=== PATIENT | female | born 1990 | race Caucasian/White ===

== ENCOUNTER → 2021-11-01 | Outpatient (CLI) | payer BC, SELFPAY ==
[2021-11-01 17:52] LABS: ALB/GLOB Ratio 1.2 RATIO (0.9-2.4); AST(SGOT) 19 U/L (15-37); Alanine Aminotransfer ALT/SGPT 23 U/L (13-56); Albumin, Serum 4.2 g/dL (3.2-5.0); Alkaline Phosphatase 123 U/L (45-117); Anion Gap 10 (5-15); BUN 7 mg/dL (7-18); BUN/Creat Ratio 10.3 RATIO (10-20); Calcium,Total 9.5 mg/dL (8.5-10.1); Chloride 105 mmol/L (98-107); Creatinine, Serum 0.68 mg/dL (0.55-1.02); EST Glomerular Filtration Rate 107 mL/min (>60); Est Glom Filt Rate - Afr Amer 129 mL/min (>60); Globulin 3.5 g/dL (2.2-4.2); Glucose 97 mg/dL (74-106); Potassium 4.3 mmol/L (3.5-5.1); Protein, Total 7.7 g/dL (6.4-8.2); Sodium Level 139 mmol/L (136-145); Thyroid Stim Hormone (TSH) 1.01 uIU/mL (0.358-3.74)
== END | disposition home or self-care (01) ==
LOC: MFPLAB 12:11
PROVIDERS: Visit Provider Family Medicine
DX: F41.9 Anxiety disorder, unspecified (principal)
CPT/HCPCS: 36415; 80053; 84443

== ENCOUNTER → 2022-12-24 | Outpatient (CLI) | payer BC, SELFPAY ==
[2022-12-27 18:14] LABS: HPV HC, High Risk Negative
== END | disposition home or self-care (01) ==
LOC: LABSPEC 10:13
PROVIDERS: Referring Provider Nurse Practitioner Family; Visit Provider Nurse Practitioner Family
DX: Z12.4 Encounter for screening for malignant neoplasm of cervix (principal)
CPT/HCPCS: 87624; 88175; G0145

== ENCOUNTER → 2023-03-20 | Outpatient (CLI) | payer BC, SELFPAY ==
[2023-03-25 08:12] LABS: Chlamydia By Nucleic Acid AMP Negative (Negative); Gonococcus By Nucleic Acid AMP Negative (Negative)
== END | disposition home or self-care (01) ==
LOC: LABSPEC 16:27
PROVIDERS: Referring Provider Advanced Practice Midwife; Visit Provider Advanced Practice Midwife
DX: Z34.90 Encounter for supervision of normal pregnancy, unspecified, unspecified trimester (principal)
CPT/HCPCS: 87086; 87491; 87591

== ENCOUNTER → 2023-04-03 | Outpatient (CLI) | payer BC, SELFPAY ==
[2023-04-03 17:16] LABS: Absolute Lymphocyte Count 2.52 X10^3/uL (0.83-4.51); Absolute Neutrophil Count 8.1 X10^3/uL (2.0-7.7); Basophil# 0.07 X10^3/uL; Basophil% 0.6 % (0-1); Eosinophil# 0.07 X10^3/uL; Eosinophils% 0.6 % (0-5); Hematocrit 41.9 % (37-47); Hemoglobin 13.6 g/dL (12.0-15.0); Lymphocyte # 2.52 X10^3/ul (0.83-4.51); Mean Corp Hgb Conc 32.5 g/dL (32-36); Mean Corpuscular Hgb 29.3 pg (27.0-32.0); Mean Corpuscular Volume 90.3 fL (81-99); Mean Platelet Vol. 9.2 fl (6.2-12.0); Monocyte# 0.67 X10^3/uL; Monocyte% 5.8 % (0-10); NRBC Flagged by Analyzer 0 % (0-5); Neutrophil # 8.07 X10^3/uL (2.7-7.7); Neutrophil % 70.3 % (47-70); Platelet Count 338 K/mm3 (150-450); RBC Distribution Width CV 12.3 % (11.6-14.6); RBC Distribution Width SD 40.4 fl (35.1-43.9); Red Blood Count 4.64 M/mm3 (4.2-5.4); White Blood Count 11.5 K/mm3 (4.4-11.0)
[2023-04-03 17:20] LABS: NATERA MAILED SPECIMEN
[2023-04-03 17:54] LABS: Hemoglobin A1c 5.3 % (3.8-5.6)
[2023-04-03 18:40] LABS: HIV - WCH Non-Reactive (Nonreactive); Hepatitis B Surface Antigen Non-Reactive (Nonreactive); Hepatitis C Antibody Non-Reactive (Nonreactive); Rubella IgG Reactive (Nonreactive); Syphilis Antibodies Non-reactive
== END | disposition home or self-care (01) ==
LOC: LAB 16:14
PROVIDERS: PCP Family Medicine; Referring Provider Advanced Practice Midwife; Visit Provider Advanced Practice Midwife
DX: Z34.90 Encounter for supervision of normal pregnancy, unspecified, unspecified trimester (principal)
CPT/HCPCS: 36415; 83036; 85025; 86703; 86762; 86780; 86803; 86850; 86900; 86901; 87340

== ENCOUNTER → 2023-05-26 | Outpatient (CLI) | payer BC, SELFPAY ==
--- NOTE | 2023-05-26 07:49 | US_ITS ---
STUDY: SECOND AND THIRD TRIMESTER OBSTETRICAL ULTRASOUND REASON FOR EXAM: Female, 33 years old anatomy LMP: January 15, 2023. TECHNIQUE: Transabdominal and Transvaginal TECHNICAL QUALITY: Adequate. PRIOR ULTRASOUND: None. FINDINGS: There is a single intrauterine fetus. The fetus is in a cephalic presentation. There is demonstrated cardiac activity with a heart rate of 142 bpm. There is a normal amniotic fluid volume. The largest amniotic fluid pocket measures 5.4 cm. The amniotic fluid index (DARYL) is within normal limits. The placenta is fundal in location. There are Grade 0 placental changes. The cervix measures 4.5 in length. The adnexal regions are not visualized. BIOMETRY: BPD: 4.47 cm: 19 weeks, 4 days HC: 16.4 cm: 19 weeks, 1 days AC: 12.96 cm: 18 weeks, 3 days FL: 2.71 cm: 18 weeks, 2 days CI: 79.1% FL/BPD: 60.8% FL/HC: FL/AC: 20.94% HC/AC: 1.27 age by current US: 18 weeks, 6 days. PAVAN by current US: October 21, 2023. Estimated weight: 245 grams, +/- 37 grams, 34 %. Age by LMP: 18 weeks, 5 days. PAVAN by LMP: October 22, 2023. ANATOMY: Gender: Female Cranium: Normal lateral ventricles. Normal choroid plexus. Normal cerebellum. Normal cisterna magna. Normal face, nose and lips. Chest: Normal 4-chamber heart. Abdomen/Pelvis: Normal diaphragm. Normal stomach. Normal abdominal wall. Normal cord insertion. Normal 3 vessel cord. Normal kidneys. Normal bladder. Spine: Normal cervical spine. Normal thoracic spine. Normal lumbar spine. Normal sacrum. Extremities: Normal bilateral upper extremities. Normal bilateral lower extremities. US/OB Anatomy w/ Transvaginal IMPRESSION: Single live intrauterine gestation with a mean gestational age of 18 weeks and 6 days. Electronically Signed: Ramon Hollingsworth MD at 11:56 EST ,
--- OUTSIDE RECORDS SUMMARY | 2023-05-26 08:08 | XMS RPT_ITS | CCD ---
Author Name Unknown Address [address] [facility] [address] [place] [id number] Organization [facility] Care Team Providers Care Speed Reading Teacher Name Role Phone Unavailable Primary Care Provider Unavailabl e Jamari Hurt Unavailable Unavailable None, No PCP Unavailable Unavailable None, No PCP Unavailable Unavailable Unavailable Unavailable Medications Current Medications Medication Drug Class(es) Dates Sig (Normalized) Sig (Original) sulfamethoxazole 800 mg / trimethoprim 160 mg oral tablet (2 sources) Dihydrofolate Reductase Inhibitor Antibacterial, Sulfonamide Antimicrobial Start: 10-22-2018 End: 10-27-2018 take 1 tablet by mouth twice daily sulfamethoxazol e-trimethoprim 800-160 MG Tab per tablet Take 1 tablet by mouth 2 times daily for 5 days. 10 tablet 0 10/22/2018 10/27/2018 Active Completed/Discontinued Medications Medication Drug Class(es) Dates Sig (Normalized) Sig (Original) TABS (3 sources) TABS Re fills: 0 DO Active Problems Active Problems Problem Classification Problem Date Documented Da te Episodic/Chronic Bacterial infection; unspecified site (4 sources) Chlamydial infection; Translations: [Unspecified chlamydial infection] Episodic Immunizations and screening for infectious disease (5 sources) Contact with and (suspected) exposure to other viral communicable diseases; Translations: [Suspected disease caused by 2019-nCoV] Resolved: 12-29-2019 Episodic Other complications of (4 sources) Hereditary disease in family possibly affecting fetus; Translations: [Hereditary disease in family possibly affecting fetus, affecting management of mother, antepartum condition or complication] Episodic Other endocrine disorders (3 sources) Menarche; Translations: [History of Menarche] Chronic Other and delivery including normal (4 sources) Primigravida; Translations: [ care status] Episodic Other screening for suspected conditions (not mental disorders or infectious disease) (2 sources) Cancer cervix screening status; Translations: [Screening for malignant neoplasms of cervix] Episodic Residual codes; unclassified (1 source) Gestation period, 24 weeks; Translations: [24 weeks gestation of ] Episodic Residual codes; unclassified (4 sources) H/O: miscarriage; Translations: [Personal history of other genital system and obstetric disorders] Episodic Past or Other Problems Problem Classification Problem Date Documented Da te Episodic/Chronic Genitourinary symptoms and ill-defined conditions (1 source) Dysuria; Translations: [Dysuria] Episodic Residual codes; unclassified (1 source) Gestation period, 38 weeks; Translations: [38 weeks gestation of ] Unclassified (6 sources) Patient encounter status; Translations: [History of Screening for STD (sexually transmitted disease)] Unclassified (3 sources) Cancer cervix screening status; Translations: [History of Screening for cervical cancer] NEGATED: Highlighted row has not occurred!Residual codes; unclassified (20 sources) Disease Episodic Results Test Name Value Interpretation Reference Range Facil ity Vital Signs Date Time Vital Sign Value Performing Clinician Simon mclaughlin 08-13-2021 15:26-0400 Body height 172.72 cm No PCP None [facility] Phone: 08-13-2021 15:26-0400 Body mass index (BMI) [Ratio] 29.55 kg/m2 No PCP None [facility] Phone: 08-13-2021 15:26-0400 Body surface area Derived from formula 2.02 m2 No PCP None [facility] Phone: 08-13-2021 15:26-0400 Body weight 88.17 kg No PCP None [facility] Phone: 08-13-2021 15:26-0400 Diastolic blood pressure 80 mm[Hg] No PCP None [facility] Phone: 08-13-2021 15:26-0400 Systolic blood pressure 110 mm[Hg] No PCP None [facility] Phone: 05-10-2020 14:59-0500 BMI (Body Mass Index) 33.15 kg/m2 [facility] [address] Work Phone: 05-10-2020 14:59-0500 Body Temperature 96 [degF] [facility] [address] [place] Work Phone: Encounters Encounter Date Encounter Type Care Provider Facility Start: 08-13-2021 Periodic preventive med est patient 18-39 yrs No PCP None [facility] [address] [place] Work Phone: Start: 05-10-2020 Patient encounter procedure Jamari falk [facility] [address] [place] Work Phone: Start: 05-03-2020 Patient encounter procedure Jamari [place] [facility] [address] [place] Work Phone: Start: 04-26-2020 Patient encounter procedure Jamari [facility] [address] [place] Work Phone: Start: 04-19-2020 Patient encounter procedure Jamari [place] [facility] [address] [place] Work Phone: Start: 04-12-2020 Patient encounter procedure Jamaridayne falk [facility] [address] [place] Work Phone: Start: 03-29-2020 Patient encounter procedure Jamari [place] [facility] [address] [place] Work Phone: Start: 03-15-2020 Patient encounter procedure Jamari falk [facility] [address] [place] Work Phone: Start: 02-28-2020 Patient encounter procedure Jamari [place] falk [facility] [address] Work Phone: Start: 02-01-2020 Patient encounter procedure Jamari [place] falk [facility] [address] [place] Work Phone: Start: 12-29-2019 Patient encounter procedure Jamari Ad air [facility] [address] [place] Work Phone: Start: 12-13-2019 Patient encounter procedure Jamari [place] air [facility] [address] [place] Work Phone: Start: 12-07-2019 Patient encounter procedure Jamari falk [facility] [employer] Work Phone: Start: 11-04-2019 Patient encounter procedure Jamari falk [facility] [employer] Work Phone: Start: 10-25-2019 Patient encounter procedure Jamari falk [facility] [employer] Work Phone: Start: 10-25-2018 End: 10-25-2018 Telephone encounter Arminda [place] [facility] [place] Procedures Date Procedure Procedure Detail Performing Clinician Start: 05-22-2020 Antibody screen Plan of Treatment Date Care Activity Detail Author Start: 01-03-2019 Influenza vaccination INFLUENZ A VACCINE (Season Ended) [facility] Start: 10-22-2018 End: 10-23-2019 Bacteria identified Cx Nom (U) URINE CULTURE Microbiology Routine Dysuria Expected: 10/22/2018, Expires: 10/23/2019 [facility] Payers Date Payer Category Payer Private Health Insurance xxx [id number] Unknown ANTHEM Social History Date Type Detail Facility Tobacco smoking stat [facility] Unknown if ever smoked [facility] Sex Assigned At Not on file [facility] Start: 10-19-2018 End: 10-22-2018 Tobacco smoking status NMIS Current some day smoker [facility] History of tobacco use Cigarette Smoker [facility] Start: 10-19-2018 Tobacco Comment occasional smoker [facility] Start: 10-19-2018 Alcohol Comment socially [facility] Never a smoker Never a smoker [facility] [employer] Phone: Functional Status Date Assessment Result Facility NEGATED: Highlighted row Functional performance Functional status health issues are not documented Disease [facility] [employer] Work Phone: Mental Status Date Assessment Result Facility NEGATED: Highlighted row Cognitive function [Interpretation] Cognitive status health issues are not documented Disease [facility] [employer] Phone: History of Present illness Narrative Note Date & Type Note Facility History of Present illness Narrative 31-year-old presents for annual exam. Patient safe at home denies abuse. Patient sex active with condoms. Patient transition off NuvaRing as she is thinking about near the end of the year. Patient like a prescription for vitamins. Patient working on physical activity. Patient does self breast exams no new lumps bumps masses. Patient has no other acute concerns [facility] [employer] Work Phone: Instructions Name Dates Details Instructions not documented Name Dates Details Instructions not documented Name Dates Details Instructions not documented History of Present Illness * Dayna Barth, EMERGENCY MANAGEMENT SYSTEM DIRECTOR-PRODUCTION ENGINE REPAIRER - 10/19/2018 5:10 PM EDT HPI Jewel Shell is a 28 y.o. female presenting to the clinic for back pain. She states that she has had low back pain for a few days. Her menses is due in one week. No urinary complaints. No fevers and no rashes. She denies any radiation of the pain. ROS Constitutional: Denies Fever or chills Eyes: Denies visual change or eye discharge Head/Ear/Nose/Throat: Denies earache or sore throat Respiratory: Denies shortness of breath. Denies cough Cardiovascular: Denies chest pain or palpitations Gastrointestinal: SEE HPI Genitourinary: Denies dysuria Musculoskeletal: SEE HPI Skin: Denies Rash Neurological: Denies Headache, Denies focal neuro symptoms Social History Tobacco Use Smoking status: Current Some Day Smoker Types: Cigarettes Smokeless tobacco: Never Used Tobacco comment: occasional smoker Substance Use Topics Alcohol use: Yes Comment: socially Drug use: Never PHYSICAL EXAM Blood pressure 126/82, pulse 81, temperature 99.1 F (37.3 C), temperature source Temporal, resp. rate 16, height 1.727 m (5' 8 ), weight 80.9 kg (178 lb 6.4 oz), SpO2 99 %, not currently . Primary Assessment: Airway patent. Respirations unlabored, Normal respiratory effort Constitutional: Vital signs reviewed. Well appearing. No distress Patient walked back to the room with no problem. Skin: Warm and dry. No rashes noted Eyes: Conjunctiva clear. No photophobia HENT: Normocephalic. Normal Tms. Posterior pharynx clear. Thorax/ Respiratory: Respiratory effort non-labored. CTAB. Heart: Regular rate and rhythm . Gastrointestinal: Abdomen soft and non-tender. No rebound. NO cva tenderness. No rashes to back. Noparaspinal pain. Low lumbar pain B/L. No warmth Musculoskeletal: Neck supple. Neurologic: Alert and Oriented Diagnosis: ICD-10-CM 1. Lumbar back sprain, initial encounter S33.5XXA Plan: Patient denied any injury today. Our xray machine is down in the clinic. She is to see her PCP if no better in the next 5-7 days. Take Tylenol or Motrin as needed with heat or ice. We will send the urine out to ensure no growth. I did not place her on ATB yet. BROOK Romero 10/19/2018 documented in this encounter* Dayna Barth APRN-CNP - 10/22/2018 5:35 PM EDT HPI Jewel Shell is a 28 y.o. female presenting to the clinic for low back pain and frequency of urine.States that she was seen here on Friday and we requested a new urine sample as hers was showing contaminated with recommendation of new sample. Currently on menses. No fevers. States that she has hadUTI's in past and feels same. Reports 5 days of s/s. ROS Constitutional: Denies Fever or chills Eyes: Denies visual change or eye discharge Head/Ear/Nose/Throat: Denies earache or sore throat Respiratory: Denies shortness of breath. Denies cough Cardiovascular: Denies chest pain or palpitations Gastrointestinal: SEE HPI Genitourinary: SEE HPI Musculoskeletal: SEE HPI Skin: Denies Rash Neurological: Denies Headache, Denies focal neuro symptoms Social History Tobacco Use Smoking status: Current Some Day Smoker Types: Cigarettes Smokeless tobacco: Never Used Tobacco comment: occasional smoker Substance Use Topics Alcohol use: Yes Comment: socially Drug use: Never PHYSICAL EXAM Blood pressure 113/78, pulse 78, temperature 98.3 F (36.8 C), temperature source Temporal, resp. rate 16, height 1.727 m (5' 8 ), weight 79.1 kg (174 lb 6.4 oz), SpO2 99 %, not currently . Primary Assessment: Airway patent. Respirations unlabored, Normal respiratory effort Constitutional: Vital signs reviewed. Well appearing. No distress Thorax/ Respiratory: Respiratory effort non-labored. . Heart: Regular rate and rhythm. Gastrointestinal: Abdomen soft and non-tender. No rebound. Low back pain across lumbar. No CVA tenderness Musculoskeletal: Neck supple. All joints grossly normal. Neurologic: Alert and Oriented Diagnosis: ICD-10-CM 1. Dysuria R30.0 POCT URINALYSIS DIPSTICK NON AUTOMATED URINE CULTURE 2. Acute cystitis with hematuria N30.01 Plan: Urine sent for cx again. Started on Bactrim. Will call and STOP ATB if negative. She is to drink plenty of fluids. Denied any questions. BROOK Romero 10/22/2018 documented in this encounter Assessments Diagnosis Lumbar back sprain, initial encounter- Primary Diagnosis Dysuria- Primary Acute cystitis with hematuria Acute cystitis Summary Purpose Family History No Family History Records Found Grandparent Name Dates Details Family history of diabetes m ellitus(V18.0, Z83.3) Status:Active Father Name Dates Details Family history of hypertensi on(V17.49, Z82.49) Status:Active Grandparent Name Dates Details Family history of diabetes m ellitus(V18.0, Z83.3) Status:Active Father Name Dates Details Family history of hypertensi on(V17.49, Z82.49) Status:Active Grandparent Name Dates Details Family history of diabetes m ellitus(V18.0, Z83.3) Status:Active Father Name Dates Details Family history of hypertensi on(V17.49, Z82.49) Status:Active Unknown Family Member Name Dates Details Family history of diabetes m ellitus: Grandparent(V18.0, Z83.3) Status:Active Family history of hypertensi on: Father(V17.49, Z82.49) Status:Active Advance Directives No Advanced Directives Records FoundNo Advanced Directives Records FoundNo Advanced Directives Records FoundNo Advanced Directives Records Found Hospital Course Note Send Summary: Discharge Summ [place] Providers: Provider RoleProvider Name AttendingAdair, Jamari ReferringJamari Hurt PrimaryRequired, No Pcp Note Recipients: Jamari Hurt, DO Required, No Pcp, Discharge: Summary: Admission Date: .22-May-2020 04:07:00 Discharge Date: 24-May-2020 Attending Physician at Discharge: Jamari Hurt Admission Reason: 39 weeks gestation. admit to labor and delivery Final Discharge Diagnoses: 39 weeks gestation. admit to labor and delivery Procedures: Spontaneous vaginal delivery Condition at Discharge: Satisfactory Disposition at Discharge: .Home Vital Signs: T PRBPSpO2 [id number]/6399% Date/Time05/24 4: 4: 4: 4: 4:44 Range(36.6C - 36.9C ) (77 - 97 ) (14 - 16 ) (111 - 123 )/ (58 - 76 ) (96% - 99% ) Highest temp of 36.9 C was recorded at 05/23 9:05 Physical Exam: Please see rounding note Hospital Course: Patient recuperated well in the peroid. Patient breast-feeding. Precautions reviewed returning to bedside. All questions (more content not included)... Note Provider Information: Matern al Delivery Information: Delivery Type: vaginal delivery Did this pt receive corticosteroids at any time during this : No Was chorioamnionitis diagnosed during this labor: no What antibiotic(s) were administered during labor and/or pre-incision: none Did this patient receive progesterone in any form to prevent premature delivery: no Rupture of Membranes: artificial Spontaneous Labor: no Induction or Scheduled : induction Is patient at delivery >/= to 37 to < 39 completed weeks of gestation: no Vaginal Delivery Type: spontaneous Vaginal Delivery Complications: none Delivery Anesthesia: epidural Presentation: vertex Vertex Presentation: occiput anterior Episiotomy & Repair: none Perineal Laceration: second degree Other Laceration: vaginal, right Laceration Repair: yes QBL (mL): 214 mL Blood Products Transfused during Delivery (indicate number of units given): none Placenta: spontaneous Choose Baby: A Cord Characteristics: no anomali (more content not included)... Procedure Findings Note Provider Information: Matern al Delivery Information: Delivery Type: vaginal delivery Did this pt receive corticosteroids at any time during this : No Was chorioamnionitis diagnosed during this labor: no What antibiotic(s) were administered during labor and/or pre-incision: none Did this patient receive progesterone in any form to prevent premature delivery: no Rupture of Membranes: artificial Spontaneous Labor: no Induction or Scheduled : induction Is patient at delivery >/= to 37 to < 39 completed weeks of gestation: no Vaginal Delivery Type: spontaneous Vaginal Delivery Complications: none Delivery Anesthesia: epidural Presentation: vertex Vertex Presentation: occiput anterior Episiotomy & Repair: none Perineal Laceration: second degree Other Laceration: vaginal, right Laceration Repair: yes QBL (mL): 214 mL Blood Products Transfused during Delivery (indicate number of units given): none Placenta: spontaneous Choose Baby: A Cord Characteristics: no anomali (more content not included)... Chief Complaint PT IS HERE TODAY FOR AN ANNUAL EXAM. LAST PAP WAS 10/25/2019, NIL. HAS NO CONCERNS. DOES A SELF BREAST CHECK OCCASIONALLY. LMP: 08/08/2021 Additional Source Comments Reason for Visit (unrecogniz ed section and content) Reason Comments Results Reason Comments Urinary Pain INFORMATION SOURCE (unrecogn ized section and content) DATE CREATED AUTHOR AUTHOR'S ORGANIZ ATION 05/29/2020 [facility] DATE CREATED AUTHOR AUTHOR'S ORGANIZ ATION 07/26/2020 [facility] DATE CREATED AUTHOR AUTHOR'S ORGANIZ ATION 08/14/2021 [employer] FOR RECORDS PERTAINING TO PATIENTS WHO ARE OR HAVE BEEN ENROLLED IN A CHEMICAL DEPENDENCY/SUBSTANCEABUSE PROGRAM, SOME INFORMATION MAY BE OMITTED. This clinical summary was aggregated from multiple sources. Caution should be exercised in using it in the provision of clinical care. This summary normalizes information from multiple sources, and as a consequence, information in this document may materially change the coding, format and clinical context of patient data. In addition, data may be omitted in some cases. CLINICAL DECISIONS SHOULD BE BASED ON THE PRIMARY CLINICAL RECORDS. [facility] [employer] provides no warranty or guarantee of the accuracy or completeness of information in this document.
== END | disposition home or self-care (01) ==
PROVIDERS: PCP Family Medicine; Referring Provider Nurse Practitioner Women's Health; Visit Provider Nurse Practitioner Women's Health
DX: Z34.90 Encounter for supervision of normal pregnancy, unspecified, unspecified trimester (principal)
CPT/HCPCS: 76805; 76817

== ENCOUNTER → 2023-07-25 | Outpatient (CLI) | payer BC, SELFPAY ==
[2023-07-25 16:55] LABS: Absolute Neutrophil Count 9.6 X10^3/uL (2.0-7.7); Basophil# 0.07 X10^3/uL; Basophil% 0.6 % (0-1); Eosinophil# 0.03 X10^3/uL; Eosinophils% 0.2 % (0-5); Hematocrit 37.4 % (37-47); Hemoglobin 12.3 g/dL (12.0-15.0); Mean Corp Hgb Conc 32.9 g/dL (32-36); Mean Corpuscular Hgb 30.8 pg (27.0-32.0); Mean Corpuscular Volume 93.7 fL (81-99); Monocyte# 0.51 X10^3/uL; Monocyte% 4.2 % (0-10); NRBC Flagged by Analyzer 0 % (0-5); Neutrophil # 9.64 X10^3/uL (2.7-7.7); Neutrophil % 79.5 % (47-70); Platelet Count 280 K/mm3 (150-450); RBC Distribution Width CV 13.1 % (11.6-14.6); RBC Distribution Width SD 44.8 fl (35.1-43.9); Red Blood Count 3.99 M/mm3 (4.2-5.4); White Blood Count 12.1 K/mm3 (4.4-11.0)
[2023-07-25 17:11] LABS: Glucose Challenge Gest 1H 50g 214 mg/dL (70-140)
[2023-07-25 17:38] LABS: HIV - WCH Non-Reactive (Nonreactive); Syphilis Antibodies Non-reactive
== END | disposition home or self-care (01) ==
LOC: LAB 16:12
PROVIDERS: PCP Family Medicine; Referring Provider Registered Nurse; Visit Provider Registered Nurse
DX: O09.92 Supervision of high risk pregnancy, unspecified, second trimester (principal); Z3A.00 Weeks of gestation of pregnancy not specified
CPT/HCPCS: 36415; 82950; 85025; 86703; 86780; 86850; 86900; 86901

== ENCOUNTER 2023-09-12 11:58 | Outpatient (CLI) | payer BC, SELFPAY ==
[2023-09-12] VITALS (7 sets, daily range): BP systolic 102–145; BP diastolic 55–84; PULSE 92–128; RESP 18; TEMP 36.7–36.8; O2SAT 97–99; BMI 33.9
--- NOTE | 2023-09-12 12:17 | US_ITS ---
We are attempting to reach an attending provider to discuss findings. An addendum with communication details will be sent when the communication is complete. INDICATION: decelerations EXAMINATION: Ultrasound US Biophysical Profile W/O Nonst TECHNIQUE: Transabdominal pelvic ultrasound was performed with grayscale color flow and M-mode Doppler. COMPARISON: None. LMP: 01/15/2023 correlating with 34 weeks 2 days gestation estimated delivery date October 22, 2023. FINDINGS: INTRAUTERINE GESTATION(s): Single. HEART MOTION is 132 bpm. AMNIOTIC FLUID INDEX (DARYL): 15.5 cm with deepest vertical pocket 5.0 cm BIOPHYSICAL PROFILE (BPP): 6/8 -- Breathin/2. -- Movement: 2/2. -- Tone: 2/2. --DARYL: 2/2. PRESENTATION: Cephalic PLACENTA: Anterior. Grade 2. No evidence of abruption. CERVIX: The cervix is not well seen. US/Biophysical Prof W/O Non Stres IMPRESSION: Single live intrauterine with normal heart rate Biophysical profile is 6 out of 8 with 0 score for breathing movements Breech presentation. Electronically Signed: Ruy Boyer MD at 17:10 EDT ,
[2023-09-12] MEDS: Acetaminophen 500 MG Tablet 1000 MG PO (12:52)
--- NOTE | 2023-09-12 16:46 | OB.TRI.PN ---
Progress Notes Date of Service: 09/12/23 Progress Note: Patient presents for triage evaluation secondary to equivocal NST in the office. Difficult to determine baseline vs decelerations with movement FHT: 130 Moderate variability reactive no decelerations category I tracing [place]: no Contractions Assessment and plan: BPP 8/10, Reactive NST, reassuring maternal and status patient discharged to home to follow-up in office . See problem list details for additional plan information. Charges/Coding Multi Select Codes Urinary/Genital Urinary/Genital CPT Codes: No Charge Assessment & Plan (1) Gestational diabetes: COMMENT: metfomin started 08/12- start nsts twice weekly starting next visit. 4xdaily glucose 36 weeks growth scan (2) Obesity affecting : QUALIFIERS: Trimester: second trimester Obesity type affecting : unspecified obesity Qualified Code(s): O99.212 - Obesity complicating , second trimester (3) Depression: QUALIFIERS: Depression Type: unspecified Qualified Code(s): F32.A - Depression, unspecified COMMENT: Currently taking Zoloft (4) Vegetarian: (5) Equivocal non-stress test: COMMENT: to WP. extended monitoring and BPP (6) Former smoker, stopped smoking in distant past: (7) Supervision of high-risk : QUALIFIERS: Trimester: second trimester Qualified Code(s): O09.92 - Supervision of high risk , unspecified, second trimester COMMENT: [id number], PAVAN 10/29/23 PC Rosina Keanu (8) : QUALIFIERS: Weeks of gestation: 34 weeks Qualified Code(s): Z3A.34 - 34 weeks gestation of COMMENT: NIPT low risk. history of traumatic epidural with last baby in [place]. - thinks has scoliosis
== END 2023-09-12 15:10 | disposition home or self-care (01) ==
LOC: WPOUT 12:02 → WP 12:03
PROVIDERS: PCP Family Medicine; Referring Provider Advanced Practice Midwife; Visit Provider Advanced Practice Midwife
DX: O36.8390 Maternal care for abnormalities of the fetal heart rate or rhythm, unspecified trimester, not applicable or unspecified (principal); O24.415 Gestational diabetes mellitus in pregnancy, controlled by oral hypoglycemic drugs; Z3A.00 Weeks of gestation of pregnancy not specified; O99.210 Obesity complicating pregnancy, unspecified trimester; O99.340 Other mental disorders complicating pregnancy, unspecified trimester; F32.A Depression, unspecified
CPT/HCPCS: 59025; 59050; 76819; 99221; G0378

== ENCOUNTER → 2023-09-26 | Outpatient (CLI) | payer BC, SELFPAY | END | disposition home or self-care (01) | LOC: LABSPEC 16:51 | PROVIDERS: PCP Family Medicine; Referring Provider Registered Nurse; Visit Provider Registered Nurse | DX: Z34.93 Encounter for supervision of normal pregnancy, unspecified, third trimester (principal) | CPT/HCPCS: 87081 ==

== ENCOUNTER → 2023-09-30 | Outpatient (CLI) | payer BC, SELFPAY ==
--- NOTE | 2023-09-30 17:37 | US_ITS ---
INDICATION: GROWTH EXAMINATION: Ultrasound US OB Limited 1 Or More Fetus TECHNIQUE: transabdominal pelvic ultrasound was performed. Grayscale, spectral waveform, and color flow Doppler evaluation of the adnexa. COMPARISON: 05/26/2023 LMP: Unknown. Beta-hCG: Unknown. Provided EGA: 36 weeks 6 days FINDINGS: INTRAUTERINE GESTATION(s): Single. ESTIMATED GESTATIONAL AGE: 37 weeks 3 days ESTIMATED DUE DATE (PAVAN): 10/18/2023 HEART MOTION is 141 bpm. AMNIOTIC FLUID INDEX (DARYL): 19.3 cm ESTIMATED WEIGHT: 3050 g or 6 lbs. 12 oz. Percentile 55th%. BIOPHYSICAL PROFILE (BPP): Not assessed. PRESENTATION: Cephalic PLACENTA: Anterior. There is no placenta previa or abruption. CERVIX: The cervix is not visualized. US/OB Limited With Biometrics IMPRESSION: Single live intrauterine of 37 weeks 3 days. Concordant interval growth. Electronically Signed: Kun Stevens MD at 20:53 EDT ,
== END | disposition home or self-care (01) ==
LOC: US 17:32
PROVIDERS: PCP Family Medicine; Referring Provider Obstetrics & Gynecology; Visit Provider Obstetrics & Gynecology
DX: Z34.90 Encounter for supervision of normal pregnancy, unspecified, unspecified trimester (principal); Z3A.00 Weeks of gestation of pregnancy not specified
CPT/HCPCS: 76816

== ENCOUNTER 2023-10-15 07:00 | Inpatient (IN) | payer BC, SELFPAY ==
[2023-10-15] VITALS (56 sets, daily range): BP systolic 103–141; BP diastolic 55–95; PULSE 84–118; RESP 16–20; TEMP 36.9–37.1; O2SAT 96–99; BMI 33.7
--- NOTE | 2023-10-15 07:52 | HP.PCM.OB_ITS ---
HPI - General General Date of Admission: 10/15/23 HPI Narrative JEWEL SHELL, is a 33 y/o @ 39 weeks 0 days who presents to L&D for IOL due to gestational diabetes Maternal Data Information PAVAN Calculator Estimated Delivery Date Method Current WG Current Estimate 10/22/23 Ultrasound #1 39w 0d Other Estimates 10/29/23 LMP (Certain) 38w 0d PFS PFS Medical History Chemical Breathing difficulty Chlamydia Home Medications ?Medication ?Instructions ?Recorded ?Last Taken ?Type multivit-min no.71-iron fum 28 1 cap PO BID 03/14/23 09/11/23 21:30 History mg-folate no.1 1 mg-dha 300 mg 1 cap capsule (PNV-[place]) sertraline 50 mg tablet 50 mg PO DAILY 03/14/23 09/12/23 08:30 History blood sugar diagnostic (Blood #120 ea 07/28/23 Unknown Rx Glucose Test strips) blood-glucose meter #1 ea 07/28/23 Unknown Rx ondansetron 4 mg disintegrating 4 mg PO Q6H PRN nausea and 09/05/23 09/12/23 09:30 Rx tablet vomiting #20 tabs 4 mg metformin 500 mg tablet 500 mg PO QHS #30 tabs 10/13/23 Unknown Rx Allergy/AdvReac Type Severity Reaction Status Date / Time No Known Allergies Allergy Verified 10/13/23 11:08 Family History Mother Family history of recurrent miscarriage was on antiemetic that caused miscarriages Surgical History Bone marrow donor Social History adopted: No household members: spouse and children number of children: 1 current occupational status: employed current occupation: [employer] current occupational exposures/hazards: No pets and animals: Yes (Not managing litterbox) pets and animals: cat(s) and dog(s) history of recent travel: No sexually active: Yes Smoking Status: Former smoker quit date: 04/10/17 alcohol intake: current alcohol intake frequency: a few times a week details: not while substance use type: does not use diet: vegetarian well-balanced diet: daily or most days caffeine: Yes Type: coffee Number of servings: 2 eating out: 1-3 times/week during the past year weight has: remained stable what type of physical activity do you participate in: walking frequency: 3-4 times per week duration: 30-45 minutes/day john/rastafari: None seatbelt use: always do you feel safe at home: Yes additional social history: - [employer] for [employer] History 3 Elective abortions Hx Para 1 Spontaneous abortions 1 Hx # Term Pregnancies Ectopic pregnancies Hx # Pregnancies Multiple births # of living children 1 Past Pregnancies Del. Date Name GA/Weeks Outcome Route Bth Weight Infant Gen Labor Lgth Anesthesia Del Locatn Provider FOB 04/29/19 miscarriage/chemical 05/22/20 Rosina 41 live - full term 8#0oz Female 11.5HR S epidural [facility] Dr. Blu Colunga Delivery Date: 05/22/20 Last Updated by: Lisa Mistry IOL, epidural trauma(Had 3) Visit Details Expected Delivery Route/Plan Labor Preferences- CB/BF classes: [] labor support person: [] labor intervention preferences: [] pain management options preferred: [] cut cord/dad catch: [] : [] PP control planned: [] discussed possible routes of delivery and associated risks: [] special requests: [] Plans Covid status: [] Flu vaccine: [] Tdap vaccine: [] Rhogam: [] LARC form signed: completed Problem list reviewed and updated with the most current plan of care details and appropriate orders placed. Relevant counseling for the gestational age provided. Continue routine care and follow up unless otherwise noted in visit notes/problem list details OB Flowsheet Initial Weight: Not Recorded Date -?-?-?-?-?-?-?-?-?-?-?-?- EGA Weight BP Urine Prot -?-?-?-?-?-?-?-?-?-?-?-?- Glucose FHR FuHt Pres Dilation -?-?-?-?-?-?-?-?-?-?-?-?- Effaced St Visit Note 03/20/23 -?-?-?-?-?-?-?-?-?-?-?-?- 9w 1d 211 lb 4 oz 122/74 -?-?-?-?-?-?-?-?-?-?-?-?- 175 -?-?-?-?-?-?-?-?-?-?-?-?- kw-CRL 21.9mm no t cons with dates. PAVAN Adjusted. 04/17/23 -?-?-?-?-?-?-?-?-?-?-?-?- 13w 1d 213 lb 122/78 Negative -?-?-?-?-?-?-?-?-?-?-?-?- Negative 162 -?-?-?-?-?-?-?-?-?-?-?-?- MH-No Vb. Nausea improved. Reviewed PN labs. 05/14/23 -?-?-?-?-?-?-?-?-?-?-?-?- 17w 0d 214 lb 6 oz 122/76 Nega tive -?-?-?-?-?-?-?-?-?-?-?-?- Negative 160 -?-?-?-?-?-?-?-?-?-?-?-?- MH-No VB. Mandy leigh. flu vaccine. Denies concerns 06/09/23 -?-?-?-?-?-?-?-?-?-?-?-?- 20w 5d 217 lb 8 oz 123/76 Nega tive -?-?-?-?-?-?-?-?-?-?-?-?- Negative 155 -?-?-?-?-?-?-?-?-?-?-?-?- JV- no lof, vagi nal bleeding, or dec fm. pt is upset about not having anatomy scan with mfm and not seeing a doctor until this visit. will try to see doc only for a few visits. 07/11/23 -?-?-?-?-?-?-?-?-?-?-?-?- 25w 2d 220 lb 120/84 Negative -?-?-?-?-?-?-?-?-?-?-?-?- Negative 135 25 -?-?-?-?-?-?-?-?-?-?-?-?- LC-no vb/ctx/lof . good fm. 07/28/23 -?-?-?-?-?-?-?-?-?-?-?-?- 27w 5d 223 lb 4 oz 131/81 119/73 -?-?-?-?-?-?-?-?-?-?-?-?- 145 30 -?-?-?-?-?-?-?-?-?-?-?-?- LC- no vb/ctx/lo f. good fm. has GDM- reviewed diet and to start testing. 08/13/23 -?-?-?-?-?-?-?-?-?-?-?-?- 30w 0d 222 lb 8 oz 124/75 Nega tive -?-?-?-?-?-?-?-?-?-?-?-?- Negative 145 31 -?-?-?-?-?-?-?-?-?-?-?-?- JV- 50% of fasti ng levels are elevated. starting metfomin and brining back for nsts. JV- 50% of fasting levels ar e elevated. starting metfomin and brining back for nsts. tdap today 08/26/23 -?-?-?-?-?-?-?-?-?-?-?-?- 31w 6d 224 lb 130/84 -?-?-?-?-?-?-?-?-?-?-?-?- 130 32 -?-?-?-?-?-?-?-?-?-?-?-?- SM- no vb lof go od fm no regular ctx 09/05/23 -?-?-?-?-?-?-?-?-?-?-?-?- 33w 2d 222 lb 4 oz 132/79 Nega tive -?-?-?-?-?-?-?-?-?-?-?-?- Negative 130 -?-?-?-?-?-?-?-?--?-?-?-?- JV- no lof, vagi nal bleeding, or dec fm. NST reactive. fasting glucose levels are better when added a protein. still taking 500 mg metformin daily at bedtime. 09/10/23 -?-?-?-?-?-?-?-?-?-?-?-?- 34w 0d 221 lb 8 oz 126/85 Nega tive -?-?-?-?-?-?-?-?-?-?-?-?- Negative 120 34 -?-?-?-?-?-?-?-?-?-?-?-?- JV- normal gluco se log. NST reactive. 09/12/23 -?-?-?-?-?-?-?-?-?-?-?-?- 34w 2d 223 lb 122/84 Negative -?-?-?-?-?-?-?-?-?-?-?-?- Negative 150 -?-?-?-?-?-?-?-?-?-?-?-?- KW- NST equivoca l today. Very active fetus but unable to determine decels vs accels/baseline. to for extended monitoring and BPP 09/15/23 -?-?-?-?-?-?-?-?-?-?-?-?- 34w 5d 223 lb 6 oz 129/73 -?-?-?-?-?-?-?-?-?-?-?-?- 145 -?-?-?-?-?-?-?-?-?-?-?-?- JV- no lof, vagi nal bleeding, or dec fm. NST reactive. fasting levels still somewhat elevated. increasing Metformin to 1000 at bedtime. 09/18/23 -?-?-?-?-?-?-?-?-?-?-?-?- 35w 1d 223 lb 4 oz 111/78 Nega tive -?-?-?-?-?-?-?-?-?-?-?-?- Negative 140 -?-?-?-?-?-?-?-?-?-?-?-?- nst SM- nst 09/23/23 -?-?-?-?-?-?-?-?-?-?-?-?- 35w 6d 223 lb 120/76 Negative -?-?-?-?-?-?-?-?-?-?-?-?- Negative 140 36 -?-?-?-?-?-?-?-?-?-?-?-?- JV- nst reactive . glucose levels normal. plan for GBS when returns friday09/26/23 -?-?-?-?-?-?-?-?-?-?-?-?- 36w 2d 224 lb 114/75 Negative -?-?-?-?-?-?-?-?-?-?-?-?- Negative 130 -?-?-?-?-?-?-?-?-?-?-?-?- LC- reactive nst . no ctx/lof/vb. fasting under 95 except for today. will log on paper and bring to next appt all 2 hour pp under 120. 09/30/23 -?-?-?-?-?-?-?-?-?-?-?-?- 36w 6d 224 lb 2 oz 123/79 Nega tive -?-?-?-?-?-?-?-?-?-?-?-?- Negative 130 37 -?-?-?-?-?-?-?-?-?-?-?-?- MH-No VB, LOF. G ood FM. Reactive NST. 10/03/23 -?-?-?-?-?-?-?-?-?-?-?-?- 37w 2d 224 lb 103/63 Negative -?-?-?-?-?-?-?-?-?-?-?-?- Negative 140 -?-?-?-?-?-?-?-?-?-?-?-?- SM- nst, bs cont rolled 10/07/23 -?-?-?-?-?-?-?-?-?-?-?-?- 37w 6d 224 lb 4 oz 118/80 Nega tive -?-?-?-?-?-?-?-?-?-?-?-?- Negative 130 38 -?-?-?-?-?-?-?-?-?-?-?-?- JV- nst reactive . good glucose log. setting up for 39 week IOL. needs pelvic exam friday to update chandler score. 10/10/23 -?-?-?-?-?-?-?-?-?-?-?-?- 38w 2d 223 lb 2 oz 130/90 Nega tive -?-?-?-?-?-?-?-?-?-?-?-?- Negative 130 -?-?-?-?-?-?-?-?-?-?-?-?- SM- NST reactive 10/13/23 -?-?-?-?-?-?-?-?-?-?-?-?- 38w 5d 224 lb 8 oz 119/82 Nega tive -?-?-?-?-?-?-?-?-?-?-?-?- Negative 135 38 -?-?-?-?-?-?-?-?-?-?-?-?- KW-no vb/lof/ctx . good fm. reactive NST. very active fetus today KW-no vb/lof/ctx. good fm. r eactive NST. very active fetus today. has IOL set up for friday ROS Constitutional Constitutional: Denies change in weight, fatigue, fever(s), headache(s), poor appetite or weakness Eyes Eyes: Denies blurry vision, change in vision, seeing flashes or spots in vision ENT HEENT: Denies dizziness, headache(s), loss taste/smell or sore throat Cardiovascular Cardiovascular: Denies chest pain, dizziness, dyspnea, irregular heart rhythm, leg edema, palpitations, rapid heart rate or vomiting Respiratory/Chest Respiratory/Chest: Denies chest tightness, cough, dyspnea or breast pain Gastrointestinal Gastrointestinal: Denies abdominal pain, anorexia, constipation, cramping, diarrhea, hemorrhoids, vomiting or weight changes Genitourinary Genitourinary: Denies dysuria, flank pain, genital lesions, genital pain, urinary frequency or urinary urgency Musculoskeletal Musculoskeletal: Denies back pain, difficulty walking, joint pain, limited range of motion, muscle cramps or numbness Integumentary Integumentary: Denies lesions or unusual bruising Neurologic Neurologic: Denies abnormal movements, abnormal speech, dizziness, numbness, seizure-like activity or syncope Psychiatric Psychiatric: Denies anxiety, behavioral changes, change in appetite, change in libido, cognitive impairment, confusion, depression, difficulty concentrating, hallucinations or suicidal thoughts Endocrine Endocrinology: Denies excessive sweating, polydipsia or polyuria Hematologic/Lymphatic Hematologic/Lymphatic: Denies easy bleeding, easy bruising or lymphadenopathy Allergic/Immunologic Allergic/Immunologic: Denies itchy eyes, lip swelling, seasonal rhinorrhea, rhinitis, throat swelling, tongue swelling, eczemia, wheezing or asthma Vital Signs Vital Signs Vital Signs: 10/15/23 07:39 10/15/23 07:39 10/15/23 07:39 Pulse Rate 90 101 H Blood Pressure 130/90 H BP Systolic 130 BP Diastolic 90 Pulse Ox 10/15/23 07:39 Pulse Rate Blood Pressure BP Systolic BP Diastolic Pulse Ox 97 Physical Exam Const alert, oriented x3, no apparent distress and healthy appearing General Appearance: cooperative; Negative for anxious HEENT normocephalic Face and Sinus: normal facial exam Eyes EOMs intact bilaterally and no scleral icterus General Eye: normal appearance of both eyes Neck full ROM and supple Lymph Lymphatic: no lymphadenopathy noted Chest Chest: abnormal inspection of the chest Resp normal respiratory effort Effort and Inspection: able to speak in complete sentences Cardio regular rate GI soft to palpation and non-tender Inspection: gravid Palpation: soft; Negative for tender external exam normal Speculum Exam - Cervix: other cx is 4/80/-1, posterior, and soft Back/Spine no CVA tenderness Extremity normal to inspection, full ROM and no clubbing, cyanosis or edema General Extremity: Negative for calf tenderness or edema Skin Lesions: no lesions Rashes: no rashes Psych mental status grossly normal Labs Labs Labs: Blood Type O POSITIVE Antibody Screen NEGATIVE Hct 37.4 % (37-47) Hgb 12.3 g/dL (12.0-15.0) Pap Smear Negative Obstetrics Ultrasound Syphilis Total Ab Non-reactive Rubella IgG Antibody Reactive (Nonreactive) Hep Bs Antigen Non-Reactive (Nonreactive) Hepatitis C Antibody Non-Reactive (Nonreactive) Chlamydia DNA (MARIA M) Negative (Negative) N.gonorrhoeae DNA (MARIA M) Negative (Negative) HIV 1&2 Antibody Non-Reactive (Nonreactive) Glucose 1 Hr 50 gm 214 mg/dL (70-140) H Assessment & Plan (1) Gestational diabetes: QUALIFIERS: Gestational diabetes mellitus control: oral hypoglycemic-controlled Trimester: third trimester Qualified Code(s): O24.415 - Gestational diabetes mellitus in , controlled by oral hypoglycemic drugs COMMENT: metfomin started 08/12- start nsts twice weekly starting next visit. 4xdaily glucose 36 weeks growth 55%. (2) Obesity affecting : QUALIFIERS: Trimester: second trimester Obesity type affecting : unspecified obesity Qualified Code(s): O99.212 - Obesity complicating , second trimester (3) Vegetarian: (4) Former smoker, stopped smoking in distant past: (5) Supervision of high-risk : QUALIFIERS: Trimester: third trimester Qualified Code(s): O09.93 - Supervision of high risk , unspecified, third trimester COMMENT: [id number], PAVAN 10/29/23 PC Rosina Keanu (6) Depression: QUALIFIERS: Depression Type: unspecified Qualified Code(s): F32.A - Depression, unspecified COMMENT: Currently taking Zoloft (7) : QUALIFIERS: Weeks of gestation: 38 weeks Qualified Code(s): Z3A.38 - 38 weeks gestation of COMMENT: GBS neg. NIPT low risk. history of traumatic epidural with last baby in [place]. - thinks has scoliosis PLAN: Plan Patient presents IOL, plan management for with pitocin/AROM. Pain management: plans epidural. GBS negative. Management of any complications: gestational dm- plan q 2 hr glucose monitoring until in active phase, then every hour . I have reviewed the [facility] and made any clinically relevant updates.
[2023-10-15] MEDS: Lactated Ringers 1,000 ML 50 ML IV (08:12)
[2023-10-15] MEDS: Oxytocin 15 Units/NS 250ml 15 UNITS/250 ML IV.SOLN 2 UNITS IV (08:17)
[2023-10-15 08:37] LABS: Absolute Lymphocyte Count 1.59 X10^3/uL (0.83-4.51); Absolute Neutrophil Count 8.6 X10^3/uL (2.0-7.7); Basophil# 0.02 X10^3/uL; Basophil% 0.2 % (0-1); Eosinophil# 0.05 X10^3/uL; Eosinophils% 0.5 % (0-5); Hematocrit 38.3 % (37-47); Lymphocyte # 1.59 X10^3/ul (0.83-4.51); Lymphocyte % 14.5 % (19-41); Mean Corp Hgb Conc 33.9 g/dL (32-36); Mean Corpuscular Hgb 31.5 pg (27.0-32.0); Mean Corpuscular Volume 92.7 fL (81-99); Mean Platelet Vol. 10.8 fl (6.2-12.0); Monocyte# 0.72 X10^3/uL; Monocyte% 6.5 % (0-10); NRBC Flagged by Analyzer 0 % (0-5); Neutrophil # 8.56 X10^3/uL (2.7-7.7); Neutrophil % 77.8 % (47-70); Platelet Count 221 K/mm3 (150-450); RBC Distribution Width CV 13.2 % (11.6-14.6); RBC Distribution Width SD 44.8 fl (35.1-43.9); Red Blood Count 4.13 M/mm3 (4.2-5.4)
[2023-10-15 09:14] LABS: Bedside Glucose 93 mg/dL (74-106)
[2023-10-15 09:15] LABS: Syphilis Antibodies Non-reactive
[2023-10-15 09:50] LABS: Bedside Glucose 82 mg/dL (74-106)
[2023-10-15] MEDS: Ondansetron 4 MG/2 ML Vial IV ×2 (10:16→16:14)
[2023-10-15] MEDS: Lactated Ringers 1,000 ML 999 ML IV (10:20)
[2023-10-15 10:59] LABS: Bedside Glucose 82 mg/dL (74-106)
[2023-10-15] MEDS: fentaNYL-bupivacaine (epidural) 100 ML BAG EPIDURAL (11:15)
[2023-10-15] MEDS: LACTATED RINGERS 500 ML 999 ML IV (11:36)
[2023-10-15 12:05] LABS: Bedside Glucose 85 mg/dL (74-106)
--- NOTE | 2023-10-15 12:51 | PN_ITS ---
Progress Note pt is comfortable with epidural current tracing: FHT: Moderate variability reactive no decelerations category I tracing [place]: q 2-3 min Contractions cx 4/80/-2, membranes ruptured with patient consent. large amount of clear fluid return reviewed tracing abnormalities since last note: no change A/P: continue pitocin, expect later today
[2023-10-15 13:20] LABS: Bedside Glucose 77 mg/dL (74-106)
[2023-10-15 13:54] LABS: Bedside Glucose 78 mg/dL (74-106)
[2023-10-15 15:03] LABS: Bedside Glucose 76 mg/dL (74-106)
[2023-10-15] MEDS: Oxytocin 15 Units/NS 250ml 15 UNITS/250 ML IV.SOLN 83 UNITS IV (16:28)
--- NOTE | 2023-10-15 16:44 | OP.PCM_ITS ---
Assessment & Plan (1) Gestational diabetes: QUALIFIERS: Gestational diabetes mellitus control: oral hypoglycemic-controlled Trimester: third trimester Qualified Code(s): O24.415 - Gestational diabetes mellitus in , controlled by oral hypoglycemic drugs COMMENT: metfomin started 08/12- start nsts twice weekly starting next visit. 4xdaily glucose 36 weeks growth 55%. (2) Obesity affecting : QUALIFIERS: Trimester: second trimester Obesity type affecting : unspecified obesity Qualified Code(s): O99.212 - Obesity complicating , second trimester (3) Depression: QUALIFIERS: Depression Type: unspecified Qualified Code(s): F32.A - Depression, unspecified COMMENT: Currently taking Zoloft (4) Former smoker, stopped smoking in distant past: (5) Supervision of high-risk : QUALIFIERS: Trimester: third trimester Qualified Code(s): O09.93 - Supervision of high risk , unspecified, third trimester COMMENT: [id number], PAVAN 10/29/23 PC Rosina Keanu (6) : QUALIFIERS: Weeks of gestation: 38 weeks Qualified Code(s): Z3A.38 - 38 weeks gestation of COMMENT: GBS neg. NIPT low risk. history of traumatic epidural with last baby in [place]. - thinks has scoliosis Maternal Data Information PAVAN Calculator Estimated Delivery Date Method Current WG Current Estimate 10/22/23 Ultrasound #1 39w 0d Other Estimates 10/29/23 LMP (Certain) 38w 0d Final PAVAN: 10/29/23 Gestational age: 39 weeks Vaginal Delivery Maternal Presentation Maternal Presentation: Medically Indicated Induction Type of Induction: Pitocin and Amniotomy Operative Information Date of Procedure: 10/15/23 Pre-Operative Diagnosis: gestational diabetes @ 39 weeks gestation Post-Operative Diagnosis: gestational diabetes @ 39 weeks gestation Surgery / Procedure Performed: Spontaneous Vaginal Delivery Type of Anesthesia: Epidural Drain: No to straight drain Estimated Blood Loss: 100cc Findings Description of Procedure: Patient began pushing and delivered the head in the JOSE presentation. The head was delivered atraumatically. The anterior and posterior shoulders delivered without complication followed by the rest of the and the infant was placed on the maternal abdomen. Delayed cord clamping was employed for approximately 60 seconds. Cord was clamped and cut and gentle traction was applied to the cord and the placenta delivered spontaneously immediately following it was noted to be intact with three-vessel cord. The perineum and vagina were inspected and noted to have a small perilabial incision that was bleeding and reapproximated with a 3-0 vicryl. EBL was 100 cc. Patient and tolerated delivery well. baby girl Dayami Presentation: Vertex Amniotic Membrane Rupture Type: Spontaneous Amniotic Fluid Description: Clear Placental Delivery Description: Spontaneous Placenta Disposition: [facility] Cord Vessel Description: 3 Vessels Cord Entanglement: None A Gender: Female (1 minute): 8 (5 minute): 9 Delayed Cord Clamping: Yes Post Vaginal Delivery Medications Given After Delivery: IV Pitocin Episiotomy Description: None Laceration: Perineal Extension/lac Complication Complications: None Multi Select Codes Urinary/Genital Urinary/Genital CPT Codes: 65947 Vaginal Delivery [facility]
--- NOTE | 2023-10-15 16:49 | PCM.DC ---
Discharge Instructions Diet Discharge Diet: No restrictions Activity Discharge Activity: Return to Normal Activity, May Not Drive (while taking narcotic pain medications.) and May Shower May resume sexual activity in: 4-6 weeks Dressing / Incision Call your doctor if your incision/area has: Continuous Slow Oozing, Sudden Increased Bleeding, Increased Pain/ Swelling, Increased Redness and Foul Smelling Discharge Follow Up Care Please Follow Up With: Minal Hillman, When: Call [phone] to make an appointment with your doctor in 6 weeks. If you had elevated blood pressure or 4th degree laceration, you will need to be seen in 2 weeks. Test Results: Test results from this visit will be discussed in further detail at your follow-up appointment, if applicable. Discharge Plan Admission Admit Date/Time: 10/15/23 07:00 Attending Provider: Minal Hillman Primary Care Provider: Rip Quintero Discharge Orders/Prescriptions Prescriptions: No Action PNV-[place] 28-1-300 mg capsule 1 cap PO DAILY sertraline 50 mg tablet 50 mg PO DAILY (DME) Blood Glucose Test Strip See Rx Instructions .MEDSUPPLY Qty: 120 5RF Rx Instructions: As directed-fasting & 2 hr post meals (DME) blood-glucose meter Misc See Rx Instructions .MEDSUPPLY Qty: 1 0RF Rx Instructions: As directed- Test fasting and 2 hours after meals ondansetron 4 mg tablet,disintegrating 4 mg PO Q6H PRN (Reason: nausea and vomiting) Qty: 20 2RF metformin 500 mg tablet 1,000 mg PO QHS Referrals / Follow Up: Rip Quintero MD [Primary Care Provider] -
[2023-10-15 18:56] LABS: Bedside Glucose 87 mg/dL (74-106)
[2023-10-15] MEDS: Ibuprofen 600 MG Tablet PO (19:13)
[2023-10-15] MEDS: 0.9% Saline Lock 10 ML Syringe IV (19:34)
[2023-10-16 03:38] VITALS: BP 114/80; PULSE 88; RESP 18
[2023-10-16] MEDS: Acetaminophen 500 MG Tablet 1000 MG PO ×2 (03:44→21:02)
[2023-10-16 06:28] LABS: Bedside Glucose 85 mg/dL (74-106)
[2023-10-16] MEDS: Ibuprofen 600 MG Tablet PO ×2 (07:30→14:18)
[2023-10-16 08:00] VITALS: BP 122/80; PULSE 98; RESP 16; TEMP 36.1; O2SAT 98
--- NOTE | 2023-10-16 08:04 | PN.OBGYN_ITS ---
Subjective Subjective Patient doing well without complaints. Tolerating PO. Ambulating and voiding without difficulty. feeding well. Denies chest pain, shortness of breath, calf pain/swelling, fevers, chills, lightheadedness. Objective Data Objective Data Vital Signs: Vital Signs Temp Pulse Resp BP Pulse Ox O2 Del Method 98.8 F 88 18 114/80 96 Room Air 10/15/23 18:02 10/16/23 03:38 10/16/23 03:38 10/16/23 03:38 10/15/23 18:10 10/16/23 03:38 Oxygen Delivery Method Room Air Weight: 221 lb 12.56 oz Body Mass Index (BMI) 33.7 Intake & Output: Intake and Output for Last 24 Hours 10/14/23 10/15/23 10/16/23 23:59 23:59 23:59 Intake Total 3000.00 / 3000.00 Output Total 100 / 100 Balance 2900.00 / 2900.00 Lab / Micro Data 10/15/23 08:12 Labs: Laboratory Results - last 24 hr 10/15/23 08:12: WBC 11.0, RBC 4.13 L, Hgb 13.0, Hct 38.3, MCV 92.7, MCH 31.5, MCHC 33.9, RDW Std Deviation 44.8 H, RDW Coeff of [place] 13.2, Plt Count 221, MPV 10.8, Immature Gran % (Auto) 0.500, Neut % (Auto) 77.8 H, Lymph % (Auto) 14.5 L, [place] % (Auto) 6.5, Eos % (Auto) 0.5, Baso % (Auto) 0.2, Absolute Neuts (auto) 8.6 H, Absolute Lymphs (auto) 1.59, Nucleated RBC % 0, Syphilis Total Ab Non- reactive, Blood Type O POSITIVE, Antibody Screen NEGATIVE 10/15/23 08:23: POC Glucose 93 10/15/23 09:28: POC Glucose 82 10/15/23 10:32: POC Glucose 82 10/15/23 11:30: POC Glucose 85 10/15/23 12:25: POC Glucose 77 10/15/23 13:28: POC Glucose 78 10/15/23 14:32: POC Glucose 76 10/15/23 18:17: POC Glucose 87 10/16/23 06:11: POC Glucose 85 ROS Constitutional Constitutional: Reports systems reviewed and no addt'l complaints, except as documented Cardiovascular Cardiovascular: Reports systems reviewed and no addt'l complaints, except as documented Respiratory/Chest Respiratory/Chest: Reports systems reviewed and no addt'l complaints, except as documented Gastrointestinal Gastrointestinal: Reports systems reviewed and no addt'l complaints, except as documented Physical Exam Const alert, oriented x3 and no apparent distress HEENT Head and Scalp: atraumatic Resp normal respiratory effort GI soft to palpation and non-tender Bimanual Exam - Vag & Uterus: uterus non-tender Uterus Palpation: uterus fundus firm (below Umbilicus) Assessment & Plan (1) Gestational diabetes: QUALIFIERS: Gestational diabetes mellitus control: oral hypoglycemic-controlled Trimester: third trimester Qualified Code(s): O24.415 - Gestational diabetes mellitus in , controlled by oral hypoglycemic drugs COMMENT: metfomin started 08/12- start nsts twice weekly starting next visit. 4xdaily glucose 36 weeks growth 55%. (2) Obesity affecting : QUALIFIERS: Trimester: second trimester Obesity type affecting : unspecified obesity Qualified Code(s): O99.212 - Obesity complicating , second trimester (3) Depression: QUALIFIERS: Depression Type: unspecified Qualified Code(s): F32.A - Depression, unspecified COMMENT: Currently taking Zoloft (4) Supervision of high-risk : QUALIFIERS: Trimester: third trimester Qualified Code(s): O09.93 - Supervision of high risk , unspecified, third trimester COMMENT: [id number], PAVAN 10/29/23 PC Rosina Keanu (5) : QUALIFIERS: Weeks of gestation: 38 weeks Qualified Code(s): Z 3A.38 - 38 weeks gestation of COMMENT: GBS neg. NIPT low risk. history of traumatic epidural with last baby in [place]. - thinks has scoliosis (6) Vaginal delivery: COMMENT: JV PLAN: Plan s/p PPD # 1 1. routine post delivery care 2. breast feeding- support given 3. rh positive 4. rubella immune
[2023-10-16] MEDS: Sertraline 50 MG Tablet PO (10:30)
[2023-10-16 14:00] VITALS: BP 115/66; PULSE 88; RESP 16; O2SAT 98
[2023-10-16 21:04] VITALS: BP 119/66; PULSE 83; RESP 16; O2SAT 98
[2023-10-17 02:10] VITALS: BP 111/64; PULSE 84; RESP 16
[2023-10-17] MEDS: Ibuprofen 600 MG Tablet PO ×2 (07:46→14:06)
[2023-10-17 08:01] VITALS: BP 128/79; PULSE 82; RESP 16; TEMP 36.8; O2SAT 99
--- NOTE | 2023-10-17 08:20 | PN.OBGYN_ITS ---
Subjective Subjective Patient doing well without complaints. Tolerating PO. Ambulating and voiding without difficulty. Feeding well. Denies chest pain, shortness of breath, calf pain/swelling, fevers, chills, lightheadedness. Objective Data Objective Data Vital Signs: Vital Signs Temp Pulse Resp BP Pulse Ox O2 Del Method 98.3 F 82 16 128/79 H 99 Room Air 10/17/23 08:01 10/17/23 08:01 10/17/23 08:01 10/17/23 08:01 10/17/23 08:01 10/17/23 08:01 Oxygen Delivery Method Room Air Weight: 221 lb 12.56 oz Body Mass Index (BMI) 33.7 Intake & Output: Intake and Output for Last 24 Hours 10/15/23 10/16/23 10/17/23 23:59 23:59 23:59 Intake Total 3000.00 / 3000.00 Output Total 100 / 100 Balance 2900.00 / 2900.00 Lab / Micro Data Attestation: I reviewed the patient's lab results. 10/15/23 08:12 ROS Constitutional Constitutional: Reports systems reviewed and no addt'l complaints, except as documented; Denies anorexia or headache(s) Cardiovascular Cardiovascular: Reports systems reviewed and no addt'l complaints, except as documented; Denies dizziness, dyspnea, nausea or tachypnea Respiratory/Chest Respiratory/Chest: Reports systems reviewed and no addt'l complaints, except as documented; Denies cough, dyspnea, shortness of breath at rest or tachypnea Gastrointestinal Gastrointestinal: Reports systems reviewed and no addt'l complaints, except as documented; Denies abdominal pain, constipation or nausea Genitourinary Genitourinary: Reports systems reviewed and no addt'l complaints, except as documented; Denies burning urination, difficulty urinating, dysuria, urinary frequency or urinary incontinence Musculoskeletal Musculoskeletal: Reports systems reviewed and no addt'l complaints, except as documented Integumentary Integumentary: Reports systems reviewed and no addt'l complaints, except as documented Neurologic Neurologic: Reports systems reviewed and no addt'l complaints, except as documented; Denies abnormal speech, dizziness or headache(s) Psychiatric Psychiatric: Reports systems reviewed and no addt'l complaints, except as documented Endocrine Endocrinology: Reports systems reviewed and no addt'l complaints, except as documented Hematologic/Lymphatic Hematologic/Lymphatic: Reports systems reviewed and no addt'l complaints, except as documented Physical Exam Const alert, oriented x3 and no apparent distress Neck full ROM Resp normal respiratory effort, normal air movement and no retractions Effort and Inspection: able to speak in complete sentences and symmetric chest movement GI soft to palpation Bladder / Kidney Exam: bladder normal to palpation Uterus Palpation: uterus fundus firm Extremity normal to inspection and full ROM Psych mental status grossly normal, thought process normal and cooperative Assessment & Plan (1) Vaginal delivery: COMMENT: JV PLAN: s/p PPD # 2 1. routine post delivery care 2. breast feeding- support given 3. rh positive 4. rubella immune 5. Discharge (2) Gestational diabetes: QUALIFIERS: Gestational diabetes mellitus control: oral hypoglycemic-controlled Trimester: third trimester Qualified Code(s): O24.415 - Gestational diabetes mellitus in , controlled by oral hypoglycemic drugs COMMENT: metfomin started 08/12- start nsts twice weekly starting next visit. 4xdaily glucose 36 weeks growth 55%. (3) Obesity affecting : QUALIFIERS: Trimester: second trimester Obesity type affecting : unspecified obesity Qualified Code(s): O99.212 - Obesity complicating , second trimester (4) Depression: QUALIFIERS: Depression Type: unspecified Qualified Code(s): F32.A - Depression, unspecified COMMENT: Currently taking Zoloft (5) Vegetarian: (6) Former smoker, stopped smoking in distant past: (7) Supervision of high-risk : QUALIFIERS: Trimester: third trimester Qualified Code(s): O09.93 - Supervision of high risk , unspecified, third trimester COMMENT: [id number], PAVAN 10/29/23 Rosina Keanu (8) : QUALIFIERS: Weeks of gestation: 38 weeks Qualified Code(s): Z 3A.38 - 38 weeks gestation of COMMENT: GBS neg. NIPT low risk. history of traumatic epidural with last baby in [place]. - thinks has scoliosis Charges/Coding Multi Select Codes Urinary/Genital Urinary/Genital CPT Codes: No Charge
[2023-10-17] MEDS: Sertraline 50 MG Tablet PO (10:48)
--- NOTE | 2023-10-18 10:47 | CASEMGMT ---
Social Work Assessment Labor and Delivery Unit Patient Address:[address] [place], [place] [id number] Phone number:[phone] Date of Referral: 10/17/23 Time of Referral:? 1142 Referred By: Minal Hillman Date of Intervention: 10/18/23?? Time of Intervention:? 1000 Reason for Referral:? anxiety and depression Sw completed chart review and acknowledges social work consult. Sw consult also received due to baby being admitted to [facility]. Sw presented to bedside and introduced self to mother of baby (MOB- Katie) and father of baby (FOB- Keanu). Sw explained reason for social work consult and completed psychosocial assessment. History obtained from: medical records, MOB and FOB. FOB was visiting with baby in [facility], sw introduced self and assessed for any needs or concerns. FOB denied. Sw then met with MOB individually in room and completed assessment. Household composition:MOB states that currently residing in their family home is TALHA, GAVI, their three year old daughter- Shayy, and baby when ready for discharge. Patient's parent/guardian status:?TALHA states that she and GAVI started dating in 2015 after meeting on [employer] Then they got in 2017. MOB denies domestic violence or intimate partner violence. ? Medical History: ?TALHA is 33 year old female who is 3, para 1- now 2 following labor and delivery of . TALHA received routine care during with [facility]. TALHA delivered baby on 10/15/23 at 39 weeks gestation via vaginal delivery. Baby girl, named Denny, was born weighing 7lb 15oz with apgars of 8 and 9 at one and five minutes of life, respectfully. TALHA states that she is breast feeding and this is going well. Baby will be followed by Dr. Ac for pediatrics. Baby was transferred to [facility] due to respiratory distress and hypoxia. She is doing well medically and may be ready for discharge today. Educational Status:? Both parents obtained their Bachelor's degrees. TALHA denies any concerns with reading, learning or comprehension. Financial Status: Both parents are gainfully employed outside of the home. TALHA works for [employer] and is able to take 20 weeks off of work- fully paid. 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 Infant Supplies:?? Parents have all necessary baby supplies, including: car seat, safe sleep space, clothes, diapers and wipes. Childcare/Caregiver(s):?When both parents are working they have childcare arranged through [facility] [employer] [address] [employer] children's book author [facility]. Transportation:?? NO barriers. Programs/Agencies Involved: ???Parents are not connected to any agencies that help them financially at this time as they are over income. Children Services/Legal Issues:??No history of involvement, no issues or concerns warranting a referral to be made at this time. ? Behavioral Health Issues: ??Mental Health History:??MOB states that GAVI may have some undiagnosed anxiety. It is not treated and he is able to manage. MOB states that she has been diagnosed with anxiety and depression, she is prescribed zoloft through Dr. Sanchez. MOB states that the medication really helps her and she is aware of healthy and appropriate coping skills to utilize ? Substance Use History:?MOB denies substance use prior to and during . ? Family History:??MOB denies family history of substance use and significant mental health diagnoses such as schizophrenia or bipolar. ??? Drug Screens: ??no urine screens observed in chart review. Family/Social Stressors:? MOB denies any issues, concerns or stressors at this time. Support Systems: MOB states that GAVI and her mom and sister are her biggest supports. MOB states that she has a lot of friends who are helpful and she knows she can reach out to them for support when she needs to. Depression/Shaken Baby/Safe Sleeping:? Sw educated MOB on signs and symptoms of baby blues and depression and anxiety. MOB expressed understanding. TALHA denied experiencing any of the mentioned issues following the of her daughter. MOB states that if she were to struggle with her mental health during this period that GAVI would be able to recognize that. MOB states that GAVI may not know specifically how to help her if she struggled, but if she told him he would know how to help. Willie educated MOB on shaken baby prevention and ABCs of safe sleep. MOB expressed understanding. ASSESSMENT:? TALHA has already been discharged from L&D. Baby is admitted to [facility], but has made progress towards medical goals and may be ready for discharge today. MOB in very bright and cheerful mood when meeting with sw. MOB talkative and engaged throughout completion of psychosocial assessment. MOB states that she has everything that she needs for baby. She is aware of mental health symptoms to be made aware of. TALHA reports to feeling really good at this time and does not feel as though her mental health has been suffering. TALHA has lots of supports in place and has obtained all necessary baby items. PLAN:? MOB and baby to be discharged when medically ready. ?No other services requested or indicated. Jung Morrissey, FOOD ANALYST, POWER ELECTRONICS RESEARCH ENGINEER
--- NOTE | 2023-10-22 10:22 | NURSING ---
Follow up phone call made, no answer, voicemail left
== END 2023-10-17 14:10 | disposition home or self-care (01) | DRG 807 ==
PROVIDERS: Admitting Provider Obstetrics & Gynecology; PCP Family Medicine; Visit Provider Obstetrics & Gynecology
DX: O24.425 Gestational diabetes mellitus in childbirth, controlled by oral hypoglycemic drugs (principal); Z37.0 Single live birth; O99.344 Other mental disorders complicating childbirth; F32.A Depression, unspecified; M41.9 Scoliosis, unspecified; O99.214 Obesity complicating childbirth; Z87.891 Personal history of nicotine dependence; Z3A.39 39 weeks gestation of pregnancy; O99.893 Other specified diseases and conditions complicating puerperium
CPT/HCPCS: 59025; 59050; 82962; 85025; 86780; 86850; 86900; 86901; 99221; J7120; A4216; G0378; J2405

== ENCOUNTER → 2024-05-12 | Outpatient (CLI) | payer BC, SELFPAY ==
[2024-05-12 18:42] LABS: AST(SGOT) 15 U/L (15-37); Alanine Aminotransfer ALT/SGPT 19 U/L (13-56); Albumin, Serum 3.9 g/dL (3.2-5.0); Alkaline Phosphatase 126 U/L (45-117); Anion Gap 3 (5-15); BUN 17 mg/dL (7-18); BUN/Creat Ratio 21.6 RATIO (10-20); Calcium,Total 9.7 mg/dL (8.5-10.1); Chloride 108 mmol/L (98-107); Creatinine, Serum 0.79 mg/dL (0.55-1.02); EST Glomerular Filtration Rate 89 mL/min (>60); Est Glom Filt Rate - Afr Amer 108 mL/min (>60); Globulin 4.1 g/dL (2.2-4.2); Glucose 103 mg/dL (74-106); Potassium 4.5 mmol/L (3.5-5.1); Sodium Level 136 mmol/L (136-145)
[2024-05-12 19:44] LABS: Hemoglobin A1c 5.2 % (3.8-5.6)
== END | disposition home or self-care (01) ==
LOC: MFPLAB 16:30
PROVIDERS: PCP Family Medicine; Referring Provider Family Medicine; Visit Provider Family Medicine
DX: R73.09 Other abnormal glucose (principal)
CPT/HCPCS: 36415; 80053; 83036

== ENCOUNTER 2025-03-30 12:06 | Outpatient (CLI) | payer BC, SELFPAY ==
[2025-03-30 12:24] VITALS: BP 124/78; PULSE 91; RESP 16; TEMP 35.8; O2SAT 100; BMI 30.4
[2025-03-30] MEDS: 0.9% NaCl Peripheral Flush Adult IV ×2 (12:47→12:53)
[2025-03-30 14:04] VITALS: BP 108/57; PULSE 83; RESP 16; TEMP 36
== END 2025-03-30 23:59 | disposition home or self-care (01) ==
LOC: MEDOUTP 12:06
PROVIDERS: PCP Family Medicine; Referring Provider Obstetrics & Gynecology; Visit Provider Obstetrics & Gynecology
DX: E86.0 Dehydration (principal)
CPT/HCPCS: 96360; 96374; A4216; J2405

== ENCOUNTER → 2025-04-25 | Outpatient (CLI) | payer BC, SELFPAY ==
[2025-04-25 12:53] LABS: Hematocrit 38.8 % (37-47); Hemoglobin 13.0 g/dL (12.0-15.0); Immature Granulocytes Count 0.020 X10^3/uL (0.0-0.0); Mean Corp Hgb Conc 33.5 g/dL (32-36); Mean Corpuscular Volume 86.4 fL (81-99); Mean Platelet Vol. 9.4 fl (6.2-12.0); NRBC Flagged by Analyzer 0 % (0-5); Platelet Count 298 K/mm3 (150-450); RBC Distribution Width CV 13.2 % (11.6-14.6); RBC Distribution Width SD 41.2 fl (35.1-43.9); Red Blood Count 4.49 M/mm3 (4.2-5.4); White Blood Count 8.9 K/mm3 (4.4-11.0)
[2025-04-25 13:44] LABS: HIV Nonreactive (Nonreactive); Hepatitis B Surface Antigen Nonreactive (Nonreactive); Hepatitis C Antibody Nonreactive (Nonreactive); Syphilis Antibodies Nonreactive (Nonreactive)
[2025-04-26 20:08] LABS: Chlamydia By Nucleic Acid AMP Negative (Negative); Gonococcus By Nucleic Acid AMP Negative (Negative)
== END | disposition home or self-care (01) ==
PROVIDERS: PCP Family Medicine; Visit Provider Advanced Practice Midwife
DX: O99.210 Obesity complicating pregnancy, unspecified trimester (principal); O09.90 Supervision of high risk pregnancy, unspecified, unspecified trimester; Z3A.00 Weeks of gestation of pregnancy not specified
CPT/HCPCS: 36415; 83036; 85025; 86703; 86762; 86780; 86803; 86850; 86900; 86901; 87086; 87088; 87340; 87491; 87591